=== PATIENT | female | born 1985 | race Caucasian/White ===

== ENCOUNTER 2019-01-27 18:58 | Inpatient (IN) | payer BC, OTHER ==
[~2019-01-27] VITALS: Ht 167.6 cm; Wt 94.0 kg
[2019-01-27] MEDS ORDERED: OXYTOCIN 10 UNITS/ML, 1ML ONE (19:02)
[2019-01-27] MEDS ORDERED: MISOPROSTOL 200 MCG TABLET ONE (19:02)
[2019-01-27] MEDS ORDERED: OXYTOCIN 10 UNITS/ML, 1ML IM PRN (19:30)
[2019-01-27] MEDS ORDERED: METHYLERGONOVINE 0.2 MG/ML IM PRN (19:30)
[2019-01-27] MEDS ORDERED: ONDANSETRON 2MG/ML, 2ML IV PRN (19:30)
[2019-01-27] MEDS ORDERED: MISOPROSTOL 200 MCG TABLET PR PRN (19:30)
[2019-01-27] MEDS ORDERED: OXYcodone/APAP 5/325MG TABLET PO PRN (19:30)
[2019-01-27] MEDS ORDERED: OXYTOCIN 30U/ 0.9% NaCL 500ML 500 ML IV ONE (19:40)
[2019-01-27] MEDS ORDERED: IBUPROFEN 600 MG TABLET ONE (19:41)
[2019-01-27] MEDS: IBUPROFEN 600 MG TABLET PO PRN (19:46)
[2019-01-27] MEDS ORDERED: PLEASE ENTER ALLERGIES MC SCH (20:00)
[2019-01-27] MEDS ORDERED: PLEASE ENTER HEIGHT AND WEIGHT MC SCH (20:00)
[2019-01-27 21:30] VITALS: BP 105/68
[2019-01-28 01:20] VITALS: BP 106/69
[2019-01-28 03:21] LABS: BASOPHILS # (AUTO) 0.06 x10^3/uL (0-0.1); BASOPHILS % (AUTO) 0 % (0-1); EOSINOPHILS # (AUTO) 0.07 x10^3/uL (0-0.4); EOSINOPHILS % (AUTO) 0 % (1-7); LYMPHOCYTES # (AUTO) 2.22 x10^3/uL (1-3.4); LYMPHOCYTES % (AUTO) 15 % (22-44); MD NO; MEAN CORPUSCULAR HEMOGLOBIN 26.5 pg (27.0-34.8); MEAN CORPUSCULAR HGB CONC 32.4 g/dL (32.4-35.8); MEAN CORPUSCULAR VOLUME 81.8 fL (80-100); MEAN PLATELET VOLUME 10.5 fL (7.4-10.4); MONOCYTES % (AUTO) 7 % (2-9); NEUTROPHILS # (AUTO) 11.67 x10^3/uL (1.8-6.8); NEUTROPHILS % (AUTO) 77 % (42-75); PLATELET COUNT 238 x10^3/uL (130-400); RED BLOOD COUNT 4.81 x10^6/uL (3.82-5.3); RED CELL DISTRIBUTION WIDTH 14.4 % (9.6-15.2)
[2019-01-28 05:00] VITALS: BP 106/71
[2019-01-28 08:00] VITALS: BP 102/73
[2019-01-28] MEDS: PRENATAL VIT/IRON/FA 1 EACH TABLET PO SCH (10:38)
[2019-01-28] MEDS: DOCUSATE 100 MG CAPSULE PO PRN (10:38)
[2019-01-28] MEDS: IBUPROFEN 600 MG TABLET PO PRN (10:38)
[2019-01-28 12:00] VITALS: BP 111/77
[2019-01-28 17:20] VITALS: BP 112/77
[2019-01-28 20:00] VITALS: BP_SYST 114; BP_SYST 117; BP_DIAS 77; BP_DIAS 79
[2019-01-29 08:45] VITALS: BP 113/76
[2019-01-29] MEDS: PRENATAL VIT/IRON/FA 1 EACH TABLET PO SCH (08:48)
[2019-01-29] MEDS: DOCUSATE 100 MG CAPSULE PO PRN (08:48)
[2019-01-29] MEDS ORDERED: IBUP-1223 PO (13:17)
== END 2019-01-29 15:51 | disposition home or self-care (01) | DRG 807 ==
LOC: LDOP 18:58 → LDIP 19:00 → 2NW 21:12
PROVIDERS: ADMIT Obstetrics & Gynecology; ATTEND Obstetrics & Gynecology
PROC: 10E0XZZ Delivery of Products of Conception, External Approach (ICD-10-PCS; principal; 2019-01-27)
DX: O62.3 Precipitate labor (principal); Z37.0 Single live birth; Z3A.40 40 weeks gestation of pregnancy
CPT/HCPCS: 36415; 85025; G0378; J2590